=== PATIENT | male | born 1985 | race Caucasian/White ===

== ENCOUNTER 2016-07-22 22:38 | Emergency (ER) | payer OTHER | END 2016-07-23 03:41 | LOC: ER1 22:38 | DX: H40.212 Acute angle-closure glaucoma, left eye (principal); R11.2 Nausea with vomiting, unspecified; F17.210 Nicotine dependence, cigarettes, uncomplicated; Z88.0 Allergy status to penicillin | CPT/HCPCS: 96374; 96375; 99283; J2270; J2405 ==

== ENCOUNTER 2020-11-18 18:47 | Emergency (ER) | payer OTHER ==
[~2020-11-18 18:47] MED LIST: BACTRIM 400-801 EACH PO; BACTROBAN OINT22 GM EXT; CLINDAMYCIN HC150 MG PO; CYCLOBENZAPRINE10 MG PO; IBUPROFEN600 MG PO; IBUPROFEN800 MG PO; KEFLEX CAP 500500 MG PO; NORFLEX 100 MG100 MG PO
[2020-11-18] MEDS ORDERED: LODINE CAP 300300 MG PO (20:30)
== END 2020-11-18 20:35 | disposition home or self-care (01) ==
LOC: ER1 18:47
DX: R53.83 Other fatigue (principal); F17.210 Nicotine dependence, cigarettes, uncomplicated; Z88.0 Allergy status to penicillin; Z20.822 Contact with and (suspected) exposure to COVID-19
CPT/HCPCS: 99283; U0003

== ENCOUNTER 2021-04-30 16:35 | Emergency (ER) | payer OTHER ==
[~2021-04-30 16:35] MED LIST changes: +LODINE CAP 300300 MG PO
[2021-04-30] MEDS ORDERED: LEVOFLOXACIN500 MG PO (18:39)
[2021-04-30] MEDS ORDERED: FLAGYL 250 MG250 MG PO (18:39)
== END 2021-04-30 18:50 | disposition home or self-care (01) ==
LOC: ER1 16:35
DX: R68.84 Jaw pain (principal); F17.200 Nicotine dependence, unspecified, uncomplicated
CPT/HCPCS: 99283